=== PATIENT | female | born 1950 | race Caucasian/White ===

== ENCOUNTER → 2022-06-08 10:19 | Outpatient (BNVA) | payer OTHER, SELFPAY | PROVIDERS: Visit Provider Physician Assistant | DX: M25.571 Pain in right ankle and joints of right foot (principal) | CPT/HCPCS: 73610; 73630; 99203 ==

== ENCOUNTER → 2022-06-16 11:32 | Outpatient (BNVA) | payer OTHER, SELFPAY | PROVIDERS: Visit Provider Physician Assistant | DX: M25.571 Pain in right ankle and joints of right foot (principal) | CPT/HCPCS: 99213 ==

== ENCOUNTER → 2022-06-21 14:16 | Outpatient (BNVA) | payer OTHER, SELFPAY | PROVIDERS: Visit Provider Physician Assistant Medical | DX: S46.211A Strain of muscle, fascia and tendon of other parts of biceps, right arm, initial encounter (principal); W50.0XXA Accidental hit or strike by another person, initial encounter | CPT/HCPCS: 99202 ==

== ENCOUNTER 2022-07-07 15:38 | Outpatient (REF) | payer OTHER, SELFPAY ==
--- NOTE | ~2022-07-07 | MR_ITS ---
EXAMINATION: MR SHOULDER WITHOUT CONTRAST, RIGHT CLINICAL INFORMATION: Shoulder overexertion. Pain COMPARISON: None TECHNIQUE: MRI of the shoulder without contrast was performed on a high-field scanner. FINDINGS: ROTATOR CUFF: Supraspinatus And Infraspinatus: There is a full-thickness complete tear of the supraspinatus the tendon. The tear may extend into the anteriormost fibers of the infraspinatus tendon. The tear results in tendon retraction back to the level of the acromioclavicular joint and glenoid. The tendon gap measures up to 4.5 cm transverse and 3.5 cm AP. There is moderate grade 2-3 fatty infiltration and moderate atrophy of the supraspinatus muscle. There is mild atrophy and fatty infiltration of the infraspinatus muscle. Teres Minor: Intact. Subscapularis: There is a full-thickness complete/near-complete tear of the subscapularis tendon. There may be some caudal fibers still intact. The tear results in tendon retraction and a tendon gap measuring up to 2.3 cm transverse and 2.2 cm craniocaudal. There is [id number] atrophy and fatty infiltration of muscle. BICEPS: There is an intra-articular tear of the biceps tendon with distal retraction to the level of the distal bicipital groove. CORACOACROMIAL ARCH: The undersurface of the acromion is curved with no subacromial spur. There is moderate hypertrophic osteoarthritis of the acromioclavicular joint. BURSA: There is increased fluid in the subacromial subdeltoid bursa communicating with the joint through the rotator cuff defect. LABRUM/CAPSULE: Mild heterogeneity of the superior labrum likely reflecting degenerative change or nondisplaced degenerative tearing. GLENOHUMERAL JOINT/MARROW: The humeral head is subluxed cephalad abutting the undersurface of the acromion. There is marginal osteophyte along the inferior aspect of the humeral head. There is scattered cartilage heterogeneity throughout the glenohumeral joint. Overall mild glenohumeral arthrosis. There is a mild joint effusion and synovitis. MR/MR shoulder RT wo con IMPRESSION: 1. Large full-thickness complete tear of the supraspinatus tendon with some possible involvement of the anteriormost fibers of the infraspinatus. There is prominent atrophy and fatty infiltration of both muscles. 2. Complete/near-complete full-thickness tear of the subscapularis tendon with advanced atrophy and fatty infiltration of the muscle. 3. Proximal tear of the biceps tendon. 4. Degenerative change and/or nondisplaced degenerative tearing of the superior labrum. 5. 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 6. Mild osteoarthritis of the glenohumeral joint with mild effusion and synovitis.
== END 2022-07-07 15:39 | disposition home or self-care (01) ==
LOC: HO.MRI 15:38
PROVIDERS: Visit Provider Internal Medicine
DX: M25.511 Pain in right shoulder (principal)
CPT/HCPCS: 73221

== ENCOUNTER → 2022-07-12 13:44 | Outpatient (BNVA) | payer OTHER, SELFPAY | PROVIDERS: Visit Provider Physician Assistant Medical | DX: M25.571 Pain in right ankle and joints of right foot (principal) | CPT/HCPCS: 99213 ==

== ENCOUNTER → 2023-03-14 10:35 | Outpatient (BNVA) | payer OTHER, SELFPAY | PROVIDERS: Visit Provider Physician Assistant Medical | DX: S33.9XXA Sprain of unspecified parts of lumbar spine and pelvis, initial encounter (principal); X50.1XXA Overexertion from prolonged static or awkward postures, initial encounter | CPT/HCPCS: 99203 ==

== ENCOUNTER → 2023-03-20 13:28 | Outpatient (BNVA) | payer OTHER, SELFPAY | PROVIDERS: Visit Provider Physician Assistant Medical | DX: S33.9XXA Sprain of unspecified parts of lumbar spine and pelvis, initial encounter (principal); X50.1XXA Overexertion from prolonged static or awkward postures, initial encounter | CPT/HCPCS: 99213 ==